=== PATIENT | female | born 1940 | race Caucasian/White ===

== ENCOUNTER 2023-07-03 18:19 | Emergency (ER) | payer MEDICARE, OTHER ==
[2023-07-03 18:53] VITALS: TEMP 97.2
[2023-07-03] MEDS ORDERED: Klor Con PO ONE ×4 (19:11→20:51)
[2023-07-03] MEDS ORDERED: POTASSIUM CHLORIDE 20 mEq IN WATER 100ML 20 MEQ/100 ML BAG IV ONE (19:11)
--- NOTE | 2023-07-03 19:17 | ERPHSYRPT ---
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 This lab was drawn at noon today. Patient has no complaints whatsoever. She does take zfik-dyw-tkoefch potassium product. Timing/Duration: today Severity: mild Associated Symptoms: denies symptoms Allergies/Adverse Reactions: No Known Drug Allergies Allergy (Verified 07/03/23 18:53) Home Medications: Clopidogrel Bisulfate [PLAVIX Tablet] 75 mg PO DAILY 07/03/23 [History] Mirabegron [Myrbetriq] 25 mg PO DAILY 07/03/23 [History] Potassium Citrate [Potassium] 99 mg PO DAILY 07/03/23 [History] Torsemide 50 mg PO DAILY 07/03/23 [History] Hx Influenza Vaccination/Date Given: No Hx Pneumococcal Vaccination/Date Given: No Travel Risk - International Travel Have you traveled outside of the country in past 3 weeks: No - Coronavirus Screening Are you exhibiting any of the following symptoms?: No Close contact with a COVID-19 positive Pt in past 14-21 Days: No - Vaccine Status Have you recieved a Covid-19 vaccination: No - Review of Systems Constitutional: No Symptoms Eyes: No Symptoms Ears, Nose, & Throat: No Symptoms Respiratory: No Symptoms Cardiac: No Symptoms Abdominal/Gastrointestinal: No Symptoms Genitourinary Symptoms: No Symptoms Musculoskeletal: No Symptoms Skin: No Symptoms Neurological: No Symptoms Psychological: No Symptoms Endocrine: No Symptoms Hematologic/Lymphatic: No Symptoms Immunological/Allergic: No Symptoms All Other Systems: Reviewed and Negative - Past Medical History Pertinent Past Medical History: Yes Neurological History: Stroke ENT History: Cataracts GI Medical History: GERD - Past Surgical History Past Surgical History: Yes Female Surgical History: Hysterectomy, Tubal Ligation - Social History Smoking Status: Never smoker Exposure to second hand smoke: No Drug Use: none Patient Lives Alone: Yes - Nursing Vital Signs Nursing Vital Signs: Initial Vital Signs Temperature 97.2 F 07/03/23 18:42 Pulse Rate 73 07/03/23 18:42 Blood Pressure 125/79 07/03/23 18:42 O2 Sat by Pulse Oximetry 95 07/03/23 18:42 Pain Scale Pain Intensity 0 - Physical Exam General Appearance: no apparent distress, alert Eye Exam: PERRL/EOMI, eyes nml inspection Ears, Nose, Throat Exam: normal ENT inspection, moist mucous membranes Neck Exam: normal inspection, non-tender, supple, full range of motion Respiratory Exam: normal breath sounds, lungs clear, airway intact, No chest tenderness, No respiratory distress Cardiovascular Exam: regular rate/rhythm, normal heart sounds, normal peripheral pulses Gastrointestinal/Abdomen Exam: soft, normal bowel sounds, No tenderness Pelvic Exam: not done Rectal Exam: not done Back Exam: normal inspection, normal range of motion, No CVA tenderness, No vertebral tenderness Extremity Exam: normal inspection, normal range of motion, pelvis stable Neurologic Exam: alert, oriented x 3, cooperative, rectifier operator II-XII nml as tested, normal mood/affect, nml cerebellar function, nml station & gait, sensation nml Skin Exam: normal color, warm, dry Lymphatic Exam: No adenopathy SpO2 Interpretation: normal SpO2: 95 O2 Delivery: Room Air - Course Nursing assessment & vital signs reviewed: Yes Ordered Tests: Active Orders 24 hr Category Date Time Status IV Insertion STAT Care 07/03/23 19:10 Active Telemetry q4h Care 07/03/23 19:11 Completed BMP Stat Lab 07/03/23 19:19 Completed MAG [MAGNESIUM] Stat Lab 07/03/23 19:19 Completed Medication Summary Generic Name Dose Route Start Last Admin Trade Name Freq PRN Reason Stop Dose Admin Potassium Chloride 20 meq in 100 mls @ 50 mls/hr 07/03/23 19:11 07/03/23 19:45 Potassium Chloride 20 Meq In Water 100ml IV 07/03/23 21:10 50 mls/hr STAT ONE Administration Sodium Chloride 250 mls @ 50 mls/hr 07/03/23 19:45 07/03/23 19:52 Sodium Chloride 0.9% 250 Ml IV 07/04/23 00:44 50 mls/hr .Q5H SCOTTY Administration Discontinued Medications Generic Name Dose Route Start Last Admin Trade Name Jeane PRN Reason Stop Dose Admin Potassium Chloride Confirm 07/03/23 19:42 Potassium Chloride 20 Meq In Water 100ml Administered 07/03/23 19:43 Dose 100 mls @ ud IV .STK-MED ONE Potassium Chloride 20 meq 07/03/23 19:11 07/03/23 19:44 Potassium Chloride Tab 10 Meq Tab PO 07/03/23 19:12 20 meq STAT ONE Administration Potassium Chloride Confirm 07/03/23 19:42 Potassium Chloride Tab 10 Meq Tab Administered 07/03/23 19:43 Dose 20 meq PO .STK-MED ONE Potassium Chloride 20 meq 07/03/23 20:40 Potassium Chloride Tab 10 Meq Tab PO 07/03/23 20:41 STAT ONE Lab/Rad Data: Laboratory Result Diagrams 07/03/23 19:19 Laboratory Results 07/03/23 Range/Units 19:19 Sodium 140 (137-145) mmol/L Potassium 2.8 L* (3.5-5.1) mmol/L Chloride 103 (98-107) mmol/L Carbon Dioxide 34 H (22-30) mmol/L Anion Gap 5.9 (5-15) MEQ/L BUN 20 H (7-17) mg/dL Creatinine 1.35 H (0.52-1.04) mg/dL Estimated GFR 39.9 ML/MIN Glucose 97 (74-106) mg/dL Calcium 8.5 (8.4-10.2) mg/dL Magnesium 1.9 (1.6-2.3) mg/dL - Progress Progress Note: 07/03/23 19:17 This patient's medical issue is 1 of low complexity. Level complex in the work- up performed based on review of the patient's past medical history, review the patient's medication list, review patient drug allergy list, history present illness and physical findings on examination. 07/03/23 20:43 The repeat potassium level was 2.8. We provided the patient with 20 mill equivalents of intravenous potassium as well as 40 mill equivalents of oral potassium. I will send a prescription of potassium 10 mEq orally 3 times a day for 2 days. Patient will have her BMP and magnesium levels run on 07/05/2020 3 in the morning. The results will be called/faxed to her special order jeweler. 07/03/23 20:47 I did review the patient's past labs regarding her potassium levels. The highest I saw was 3.4. It runs between 3.2 and 3.4. Counseled pt/family regarding: lab results, diagnosis, need for follow-up Medical Desision Making - Independent Historian Additional History obtained from: Child - Diagnostic Testing Diagnostic test were ordered, analyzed, and reviewed by me: Yes - Risk of complications The pt has a mod risk of morbidity or mortality based on: Need for prescription drug management - Departure Departure Disposition: Home Clinical Impression: Hypokalemia Condition: Stable Critical Care Time: No Referrals: IGNACIA HASSAN [Primary Care Provider] - Follow up/PCP as directed Additional Instructions: Take your medication as prescribed. Return to [facility] lab at 8 AM on 07/05/2023 to have your blood drawn. Call your special order jeweler office on 07/05/2023 at noon to obtain the results of that blood draw and to obtain a prescription for potassium chloride if needed. Prescriptions: Potassium Chloride Tab* [Klor Con] 10 meq PO TID #6 tab
[2023-07-03 19:37] LABS: ANION GAP 5.9 MEQ/L (5-15); Calcium 8.5 mg/dL (8.4-10.2); Creatinine 1 1.35 mg/dL (0.52-1.04); EST GLOMERULAR FILTRATION RATE 39.9 ML/MIN; MAGNESIUM 1.9 mg/dL (1.6-2.3)
[2023-07-03 19:40] LABS: Potassium 2.8 mmol/L (3.5-5.1)
[2023-07-03] MEDS ORDERED: POTASSIUM CHLORIDE 20 mEq IN WATER 100ML 100 ML IV ONE (19:42)
[2023-07-03] MEDS ORDERED: Sodium Chloride 0.9% 250 ML 250 ML IV SCH (19:45)
[2023-07-03] MEDS ORDERED: Sodium Chloride 0.9% 250 ML 250 ML IV ONE (19:51)
[2023-07-03 22:01] VITALS: BP 121/63; PULSE 77; RESP 18; O2SAT 100
== END 2023-07-03 22:06 | disposition home or self-care (01) ==
LOC: ED 18:19
DX: E87.6 Hypokalemia (principal); N18.9 Chronic kidney disease, unspecified; Z79.02 Long term (current) use of antithrombotics/antiplatelets; Z79.899 Other long term (current) drug therapy; Z28.310 Unvaccinated for COVID-19
CPT/HCPCS: 36000; 36415; 80048; 83735; 93041; 96365; 96366; 96374; 99284; J3480; A9270-GY